=== PATIENT | male | born 1935 | race Caucasian/White ===

== ENCOUNTER 2016-10-08 19:32 | Emergency (ER) | payer MEDICARE, BC ==
[~2016-10-08 19:32] MED LIST: COUM5TAB PO; EZET10 PO; GLYB1TAB51 PO; LEVO.1; LORT7.5T3 PO; MULTAQ PO; PRIN20TA2 PO; ROSU10; TAB-TAB; TOPR50TA PO
[2016-10-08 19:35] VITALS: BP 140/67; PULSE 110; RESP 20; TEMP 97.9; O2SAT 99
[2016-10-08] MEDS ORDERED: LISI40TA PO (19:59)
[2016-10-08] MEDS ORDERED: SYNT112T PO (19:59)
[2016-10-08] MEDS ORDERED: ZETI10TA5 PO (19:59)
[2016-10-08] MEDS ORDERED: ROSU20 PO (19:59)
[2016-10-08] MEDS ORDERED: APIX5TAB PO (19:59)
[2016-10-08] MEDS ORDERED: TOPR50TA PO (19:59)
[2016-10-08] MEDS ORDERED: GLYB5TAB3 PO (19:59)
[2016-10-08] MEDS ORDERED: COQ-50CA2 PO (20:00)
[2016-10-08] MEDS ORDERED: METF1000 PO (20:05)
--- NOTE | 2016-10-08 20:24 | PD ---
HPI Chief Complaint: Musculoskeletal Complaint Time Seen by Provider: 20:15 Travel History International Travel<30 days: No Contact w/Intl Traveler<30days: No Traveled to known affect area: No History of Present Illness HPI The patient is an 81-year-old male that complains of right sided rib pain for 2 days. 2 days ago he was in physical therapy and he felt a pop when the was pressure from the table on the right lower anterior lateral ribs. He has point tenderness there since. The patient is on L [facility] for atrial fibrillation. He denies any bruising in the area. He denies any shortness of breath, it just hurts to breathe. He denies any fever. PFSH Past Medical History Arthritis: Yes Atrial Fibrillation: Yes Autoimmune Disease: No Blood Disorders: No Heart Rhythm Problems: Yes Cancer: Yes (PROSTATE: 1996) Cardiac Catheterization: Yes Cardiovascular Problems: Yes High Cholesterol: Yes Chest Pain: Yes Congestive Heart Failure: Yes Diabetes: Yes Patient Takes Glucophage: Yes Diminished Hearing: No Gastrointestinal Disorders: Yes GERD: Yes Genitourinary: Yes Hypertension: Yes Musculoskeletal: Yes Neurologic: No Psychiatric: No Reproductive: No Respiratory: Yes (sleep apnea uses c -pap at nite) Immunizations Current: Yes Sleep Apnea: Yes (USES CPAP) Thyroid Disease: Yes (HYPOTHYROIDISM) Tetanus Vaccination: > 5 Years Influenza Vaccination: Yes Past Surgical History Abdominal Surgery: No AICD: No Cardiac Surgery: Yes (heart stent placement) Coronary Stent: Yes (2004, X1) Ear Surgery: No Endocrine Surgery: No Eye Surgery: No Genitourinary Surgery: Yes (prostate surgery for cancer) Gynecologic Surgery: No Oral Surgery: No Pacemaker: No Prostatectomy: Yes Thoracic Surgery: No Social History Alcohol Use: Yes (couple of times per week) Tobacco Use: No Substance Use: No Allergies-Medications (Allergen,Severity, Reaction): Coded Allergies: No Known Allergies (Verified , 10/08/16) Reported Meds & Prescriptions Reported Meds & Active Scripts Active Reported Metformin (Metformin HCl) 1,000 Mg Tab 1,000 Mg PO BIDPC With meals Coq-10 (Coenzyme Q10 (Ubidecarenone)) 50 Mg Cap 200 Mg PO DAILY Eliquis (Apixaban) 5 Mg Tab 5 Mg PO BID Synthroid (Levothyroxine Sodium) 112 Mcg Tab 112 Mcg PO DAILY Crestor (Rosuvastatin Calcium) 20 Mg Tab 20 Mg PO DAILY Toprol XL (Metoprolol Succinate) 50 Mg Tab 50 Mg PO HS Lisinopril 40 Mg Tab 40 Mg PO DAILY Glyburide 5 Mg Tab 5 Mg PO BID Take with meals at the same time each day Zetia (Ezetimibe) 10 Mg Tab 10 Mg PO HS Review of Systems Except as stated in HPI: all other systems reviewed are Neg Physical Exam Narrative GENERAL: The patient is alert, oriented 3 and slight apparent distress with areas right rib pain. His vital signs show heart rate of 110 but are otherwise normal. SKIN: Focused skin assessment warm/dry. HEAD: Atraumatic. Normocephalic. EYES: Pupils equal and round. No scleral icterus. No injection or drainage. ENT: No nasal bleeding or discharge. Mucous membranes pink and moist. NECK: Trachea midline. No JVD. CARDIOVASCULAR: Atrial fibrillation rhythm. No murmur appreciated. RESPIRATORY: No accessory muscle use. Clear to auscultation. Breath sounds equal bilaterally. There is tenderness at the lower, anterior-lateral rib area directly on the rib. No ecchymoses are seen and there is no bony deformity. There is no crepitus, neither bony nor air. GASTROINTESTINAL: Abdomen soft, non-tender, nondistended. Hepatic and splenic margins not palpable. MUSCULOSKELETAL: No obvious deformities. No clubbing. No cyanosis. No edema. NEUROLOGICAL: Awake and alert. No obvious cranial nerve deficits. Motor grossly within normal limits. Normal speech. PSYCHIATRIC: Appropriate mood and affect; insight and judgment normal. Data Data Last Documented VS Vital Signs Date Time Temp Pulse Resp B/P (MAP) Pulse Ox O2 Delivery O2 Flow Rate FiO2 10/08/16 21:12 78 16 97 Room Air 10/08/16 19:35 97.9 140/67 (91) Orders Orders Ribs, Uni (W/Exp Cxr-Min 3vw) (10/08/16 ) [facility] Medical Decision Making Medical Screen Exam Complete: Yes Emergency Medical Condition: Yes Medical Record Reviewed: Yes Interpretation(s) X-rays of the ribs show no fracture, pneumothorax, hemothorax, pulmonary contusion or any acute disease. Differential Diagnosis Rib fracture, pulmonary contusion, hemothorax, pneumothorax, chest wall contusion Narrative Course The patient appears to have a contusion of the chest wall. He needs to cough and deep breathe so that the lungs fully expand themselves and his secretions Coughed out. He should follow up next week with his primary care physician. Diagnosis Primary Impression: Contusion of right chest wall Additional Instructions: As we discussed, cough and deep breathe so that the secretions in her lungs coughed out. If you do not stay active and expand your lungs fully you are at risk for pneumonia. Follow-up next week with your primary care physician if you have any problems. Med/Other Pt SpecificInfo: No Change to Meds Disposition: 01 DISCHARGE HOME Condition: Stable Ubaldo Monterroso MD Oct 08, 2016 20:24
[2016-10-08 21:12] VITALS: PULSE 78; RESP 16; O2SAT 97
--- NOTE | 2016-10-08 22:01 | RADRPT ---
EXAM DATE/TIME: 10/08/2016 20:39 [facility] COMPARISON: No previous studies available for comparison. INDICATIONS : Right anterior, inferior rib pain. No known trauma. MEDICAL HISTORY : None. SURGICAL HISTORY : None. ENCOUNTER: Initial ACUITY: 1 day PAIN SCORE: 6/10 LOCATION: Right anterior ribs FINDINGS: Multiple views of the right ribs were performed. There is no evidence of displaced fracture. No arianna tructive lesions or areas of periosteal thickening are seen. Expiratory view of the chest is negativ e for pneumothorax. The mediastinal structures are midline. CONCLUSION: No acute disease. Abundio Taveras MD on October 08, 2016 at 21:58 Board Certified Radiologist. This report was verified electronically.
== END 2016-10-08 22:20 | disposition home or self-care (01) ==
LOC: PHED 19:32
DX: S20.211A Contusion of right front wall of thorax, initial encounter (principal); E11.9 Type 2 diabetes mellitus without complications; I10 Essential (primary) hypertension; E03.9 Hypothyroidism, unspecified; E78.00 Pure hypercholesterolemia, unspecified; G47.30 Sleep apnea, unspecified; X58.XXXA Exposure to other specified factors, initial encounter; Y93.A9 Activity, other involving cardiorespiratory exercise; Z79.84 Long term (current) use of oral hypoglycemic drugs; Z87.39 Personal history of other diseases of the musculoskeletal system and connective tissue; Z86.79 Personal history of other diseases of the circulatory system; Z85.46 Personal history of malignant neoplasm of prostate; Z87.19 Personal history of other diseases of the digestive system; Z87.448 Personal history of other diseases of urinary system
CPT/HCPCS: 71101; 99283